=== PATIENT | male | born 1980 | race Caucasian/White ===

== ENCOUNTER 2017-05-13 13:16 | Emergency (ER) | payer MEDICAID ==
[~2017-05-13] VITALS: Ht 170.2 cm; Wt 70.3 kg
[2017-05-13 13:32] VITALS: BP 145/77
[2017-05-13] MEDS ORDERED: LIDOCAINE HCL/PF 1% 30 ML VIAL TP ONE (14:00)
== END 2017-05-13 14:22 | disposition home or self-care (01) ==
LOC: ER 13:20
DX: L60.0 Ingrowing nail (principal)
CPT/HCPCS: 11730; A4606; J3490; Z7610

== ENCOUNTER 2019-04-30 21:07 | Emergency (ER) | payer MEDICAID ==
[~2019-04-30] VITALS: Ht 175.3 cm; Wt 74.8 kg
--- NOTE | 2019-04-30 21:59 | NUR ---
CALLED PT THREE TIMES IN WAITING ROOM. NO RESPONSE.
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
--- NOTE | 2019-04-30 22:40 | NUR ---
SEEN AND EXAMINED BY NAMAN OVALLE
[2019-04-30] MEDS ORDERED: FLUORESCEIN SODIUM OPHTH 1 EA STRIP ONE (22:49)
[2019-04-30] MEDS ORDERED: TETRACAINE HCL/PF 0.5% UD 2 ML BOTTLE ONE (22:49)
[2019-04-30] MEDS ORDERED: TETRACAINE HCL/PF 0.5% UD 2 ML BOTTLE LEFTEYE ONE (23:00)
[2019-04-30] MEDS ORDERED: FLUORESCEIN SODIUM OPHTH 1 EA STRIP OP ONE (23:00)
--- NOTE | 2019-04-30 23:14 | NUR ---
SONDRA LENS APPLIED.
[2019-04-30 23:46] VITALS: BP 133/71
--- NOTE | 2019-04-30 23:46 | NUR ---
Patient discharged to home in stable condition. Written and verbal after care instructions given. Patient verbalizes understanding of instruction.
== END 2019-04-30 23:48 | disposition home or self-care (01) ==
LOC: ER 21:10
DX: S05.02XA Injury of conjunctiva and corneal abrasion without foreign body, left eye, initial encounter (principal); W22.8XXA Striking against or struck by other objects, initial encounter; Y93.89 Activity, other specified; Y92.89 Other specified places as the place of occurrence of the external cause; Y99.8 Other external cause status

== ENCOUNTER 2020-11-19 18:10 | Emergency (ER) | payer MEDICAID ==
[~2020-11-19] VITALS: Ht 175.3 cm; Wt 77.1 kg
[2020-11-19 18:26] VITALS: BP 166/72
[2020-11-19] MEDS ORDERED: FLUORESCEIN SODIUM OPHTH 1 EA STRIP ONE (18:38)
[2020-11-19] MEDS ORDERED: FLUORESCEIN SODIUM OPHTH 1 EA STRIP OP ONE (19:00)
[2020-11-19] MEDS ORDERED: TETRACAINE HCL 0.5% OPHTALMIC 15 ML BOTTLE OP ONE (19:00)
[2020-11-19] MEDS ORDERED: IV NS 0.9% 1,000 ML BAG IV ONE (19:00)
--- NOTE | 2020-11-19 19:40 | NUR ---
Patient discharged to home in stable condition. Written and verbal after care instructions given. Patient verbalizes understanding of instruction.
== END 2020-11-19 19:41 | disposition home or self-care (01) ==
LOC: ER 18:18
DX: S05.01XA Injury of conjunctiva and corneal abrasion without foreign body, right eye, initial encounter (principal); X58.XXXA Exposure to other specified factors, initial encounter; Y93.89 Activity, other specified; Y92.89 Other specified places as the place of occurrence of the external cause; Y99.8 Other external cause status
CPT/HCPCS: 96360; 99284; J7030 ×2

== ENCOUNTER 2021-04-24 06:36 | Emergency (ER) | payer MEDICAID ==
[~2021-04-24] VITALS: Ht 175.3 cm; Wt 72.6 kg
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
[2021-04-24] MEDS ORDERED: HYDROCODONE/APAP 5/325MG TABLET ONE (06:56)
[2021-04-24] MEDS: HYDROCODONE/APAP 5/325MG TABLET PO ONE (06:57)
--- NOTE | 2021-04-24 07:02 | NUR ---
PATIENT TAKEN TO CT
--- NOTE | 2021-04-24 07:13 | NUR ---
PATIENT RETURNED FROM CT
[2021-04-24] MEDS ORDERED: IBUP800T54 PO (07:41)
[2021-04-24] MEDS ORDERED: HYDR-4209 PO (07:41)
[2021-04-24 07:52] VITALS: BP 146/88
--- NOTE | 2021-04-24 07:53 | NUR ---
Patient discharged to home in stable condition. Written and verbal after care instructions given. Patient verbalizes understanding of instruction.
== END 2021-04-24 08:01 | disposition home or self-care (01) ==
LOC: ER 06:38
DX: S16.1XXA Strain of muscle, fascia and tendon at neck level, initial encounter (principal); S39.012A Strain of muscle, fascia and tendon of lower back, initial encounter; V49.49XA Driver injured in collision with other motor vehicles in traffic accident, initial encounter; Y93.89 Activity, other specified; Y92.413 State road as the place of occurrence of the external cause; Y99.8 Other external cause status
CPT/HCPCS: 72100-TC; 72125-TC

== ENCOUNTER 2024-04-03 12:30 | Emergency (ER) | payer MEDICAID, OTHER ==
[~2024-04-03] VITALS: Ht 175.3 cm; Wt 68.5 kg
[~2024-04-03 12:30] MED LIST: HYDR-4209 PO; IBUP800T54 PO
[2024-04-03] MEDS ORDERED: SULF1TAB48 PO (13:47)
[2024-04-03] MEDS ORDERED: CEPH-570 PO (13:47)
[2024-04-03] MEDS ORDERED: BACI/NEOM/POLY B OINT PKT 1 UDPKT PACKET TP ONE (14:00)
[2024-04-03] MEDS ORDERED: TDAP [DIPH/PERTUSSIS/TET] 0.5 ML VIAL IM ONE ×2 (14:00→14:23)
[2024-04-03 14:12] VITALS: BP 142/70; TEMP 98.5; O2SAT 99
== END 2024-04-03 14:13 | disposition home or self-care (01) ==
LOC: ER 12:32
DX: S81.811A Laceration without foreign body, right lower leg, initial encounter (principal); Z79.899 Other long term (current) drug therapy; W54.0XXA Bitten by dog, initial encounter; Y93.89 Activity, other specified; Y92.89 Other specified places as the place of occurrence of the external cause; Y99.8 Other external cause status
CPT/HCPCS: 90715

== ENCOUNTER 2024-09-19 10:20 | Emergency (ER) | payer MEDICAID, OTHER ==
[~2024-09-19] VITALS: Ht 175.3 cm; Wt 70.3 kg
[~2024-09-19 10:20] MED LIST changes: +CEPH-570 PO; +SULF1TAB48 PO
[2024-09-19 11:05] LABS: BASOPHILS % (AUTO) 0.5 % (0.0-2.0); EOSINOPHILS # (AUTO) 0.1 K/uL (0.0-0.7); EOSINOPHILS % (AUTO) 1.9 % (0.0-6.0); HEMATOCRIT 40 % (39-51); HEMOGLOBIN 13.8 g/dL (13.5-17.5); LYMPHOCYTES # (AUTO) 1.5 K/uL (0.8-4.8); LYMPHOCYTES % (AUTO) 23.6 % (20.0-44.0); MEAN CORPUSCULAR HEMOGLOBIN 31 PG (26.0-33.0); MEAN CORPUSCULAR HGB CONC 35 g/dl (31.0-36.0); MEAN CORPUSCULAR VOLUME 88 fL (80-96); MONOCYTES # (AUTO) 0.6 K/uL (0.1-1.30); MONOCYTES % (AUTO) 8.9 % (2.0-12.0); NEUTROPHILS # (AUTO) 4.2 K/uL (1.8-8.9); NEUTROPHILS % (AUTO) 65.1 % (43.0-81.0); PLATELET COUNT (AUTO) 221 K/uL (150-450); RED BLOOD CELL COUNT(AUTO) 4.52 MIL/uL (4.5-6.0); RED CELL DISTRIBUTION WIDTH 13.2 % (11.5-15.0); WHITE BLOOD COUNT (AUTO) 6.5 K/uL (4.3-11.0)
[2024-09-19 11:40] LABS: CALCIUM, SERUM 8.3 mg/dL (8.5-10.1); CARBON DIOXIDE 27 mmol/L (21-32); CHLORIDE 104 mmol/L (98-107); CREATININE 0.9 mg/dL (0.6-1.3); GLUCOSE 165 mg/dL (74-106); POTASSIUM 3.5 mmol/L (3.5-5.1); SODIUM SERUM 139 mmol/L (136-145); UREA NITROGEN, BLOOD 14 mg/dL (7-18)
[2024-09-19] MEDS ORDERED: IBUP-1955 PO (12:07)
[2024-09-19 12:24] VITALS: BP 126/95; TEMP 98.2; O2SAT 99
== END 2024-09-19 12:25 | disposition home or self-care (01) ==
LOC: ER 10:23
DX: R07.89 Other chest pain (principal); Z79.899 Other long term (current) drug therapy
CPT/HCPCS: 36415; 71045-TC; 80048-TC; 84484-TC; 85025-TC